=== PATIENT | female | born 1970 | race Caucasian/White ===

== ENCOUNTER 2019-10-09 01:00 | Emergency (ER) | payer OTHER ==
[~2019-10-09] VITALS: Ht 162.6 cm; Wt 86.2 kg
--- NOTE | 2019-10-09 01:14 | NUR ---
PT AAOX4. BIB [employer] FOR MEDICAL CLEARANCE FOR BOOKING. C/O POSTERIOR R SIDED HEAD DRAINAGE. MD AT BEDSIDE FOR EVAL. AWAITING ORDERS. NO ACUTE DISTRESS NOTED.
--- NOTE | 2019-10-09 03:03 | NUR ---
Patient discharged to home in stable condition. Written and verbal after care instructions given. Patient verbalizes understanding of instruction. Pt left with [employer] in custody.
[2019-10-09 03:06] VITALS: BP 120/65
== END 2019-10-09 03:18 ==
LOC: ER 01:00
DX: S09.8XXA Other specified injuries of head, initial encounter (principal); X58.XXXA Exposure to other specified factors, initial encounter; Y93.89 Activity, other specified; Y92.89 Other specified places as the place of occurrence of the external cause; Y99.8 Other external cause status
CPT/HCPCS: 70450-TC